=== PATIENT | male | born 1955 | race African-American/Black ===

== ENCOUNTER 2017-06-04 21:37 | Emergency (ER) | payer OTHER | END 2017-06-04 23:43 | disposition home or self-care (01) | LOC: ERS 21:37 | DX: M26.601 Right temporomandibular joint disorder, unspecified (principal); J43.9 Emphysema, unspecified; M19.90 Unspecified osteoarthritis, unspecified site; F41.9 Anxiety disorder, unspecified; F31.9 Bipolar disorder, unspecified; F17.210 Nicotine dependence, cigarettes, uncomplicated | CPT/HCPCS: 99283 ==

== ENCOUNTER 2019-06-02 22:56 | Emergency (ER) | payer OTHER | END 2019-06-02 23:43 | disposition home or self-care (01) | LOC: ERS 22:56 | DX: R14.0 Abdominal distension (gaseous) (principal); F17.210 Nicotine dependence, cigarettes, uncomplicated; F41.9 Anxiety disorder, unspecified; J44.9 Chronic obstructive pulmonary disease, unspecified; E78.00 Pure hypercholesterolemia, unspecified; Z79.899 Other long term (current) drug therapy | CPT/HCPCS: 99281 ==